=== PATIENT | female | born 1995 | race Caucasian/White ===

== ENCOUNTER 2017-04-06 21:25 | Emergency (ER) | payer OTHER ==
[~2017-04-06] VITALS: Ht 152.4 cm; Wt 70.5 kg
[~2017-04-06 21:25] MED LIST: MOTRIN600 MG PO
[2017-04-06] MEDS ORDERED: FLINTSTONES WIT18 MG PO (22:49)
[2017-04-06] MEDS ORDERED: ZYRTEC10 M3 PO (22:49)
[2017-04-06] MEDS ORDERED: Birth Control PO (22:50)
[2017-04-06 23:20] LABS: BASOPHIL COUNT 0.1 K/uL (0-0.1); EOSINOPHIL COUNT 0.1 K/uL (0-0.3); HEMATOCRIT 41.3 % (36.0-46.0); IMMATURE GRANULOCYTE (%) 0.4 % (0.0-0.7); INSTRUMENT ABS NEUTROPHIL CT 4.1 K/uL; LYMPHOCYTE COUNT 2.4 K/uL (1.0-2.8); MCH 27.6 PG (29.0-34.0); MCHC 33.7 G/DL (30.0-36.0); MCV 81.9 FL (83-99); MEAN PLAT.VOLUME 9.7 uM^3 (9.5-12.4); MONOCYTE (%) 10.1 % (3-12); MONOCYTE COUNT 0.7 K/uL (0-0.8); NEUTROPHIL (%) 55.4 % (45-76); NEUTROPHIL COUNT 4.1 K/uL (1.8-6.4); PLATELET COUNT 269 K/uL (156-360); RBC DIS.WIDTH-SD 35.5 % (39-53); RED BLOOD COUNT 5.04 M/uL (3.80-5.20); WHITE BLOOD COUNT 7.3 K/uL (4.1-10.2)
[2017-04-06 23:38] LABS: CHLORIDE 109 mEq/L (99-109); SODIUM 143 mEq/L (136-147)
[2017-04-06 23:40] LABS: GLUCOSE 101 mg/dL (70-99); QUANTITATIVE HCG < 4.0 MIU/ML
[2017-04-06 23:42] LABS: ANION GAP 9 MEQ/L (2-14)
[2017-04-06 23:44] LABS: GFR ESTIMATE (CALCULATED) > 59 mL/min/
[2017-04-06 23:45] LABS: UREA NITROGEN (BUN) 8 mg/dL (9-23)
[2017-04-07 01:03] VITALS: BP 127/74
== END 2017-04-07 01:04 | disposition home or self-care (01) ==
LOC: EME 21:25
PROVIDERS: Emergency Medicine
DX: R25.9 Unspecified abnormal involuntary movements (principal); R20.0 Anesthesia of skin; R00.0 Tachycardia, unspecified
CPT/HCPCS: 70450; 80048; 84146; 84702; 85025; 93005; 99281; 99284; J2060

== ENCOUNTER 2017-04-07 13:08 | Emergency (ER) | payer OTHER ==
[~2017-04-07] VITALS: Ht 152.4 cm; Wt 71.5 kg
[~2017-04-07 13:08] MED LIST changes: +Birth Control PO; +FLINTSTONES WIT18 MG PO; +ZYRTEC10 M3 PO
[2017-04-07 15:19] VITALS: BP 121/77
== END 2017-04-07 15:20 | disposition home or self-care (01) ==
LOC: EME 13:08
DX: R25.8 Other abnormal involuntary movements (principal); R51 Headache
CPT/HCPCS: 93005; 99281; 99284

== ENCOUNTER 2017-12-31 21:46 | Emergency (ER) | payer OTHER ==
[~2017-12-31] VITALS: Ht 157.5 cm; Wt 79.5 kg
[2017-12-31] MEDS ORDERED: NAPROSYN500 MG PO (22:30)
[2017-12-31 22:55] VITALS: BP 120/87
== END 2017-12-31 22:57 | disposition home or self-care (01) ==
LOC: EME 21:46
DX: S90.31XA Contusion of right foot, initial encounter (principal); W20.8XXA Other cause of strike by thrown, projected or falling object, initial encounter
CPT/HCPCS: 73610; 73630; 99281; 99284